=== PATIENT | male | born 1950 | race Hispanic/Latino ===

== ENCOUNTER 2023-01-01 14:12 | Inpatient (IN) | payer OTHER ==
[2023-01-01] MEDS ORDERED: Furosemide 40 MG/4 ML VIAL ONE ×2 (14:32→19:43)
[2023-01-01 14:37] LABS: #Basophils 0.1 10x3/uL (0.0-0.2); #Eosinphils 0.1 10x3/uL (0.0-0.5); #Monocytes 0.7 10x3/uL (0.0-1.1); #Neutrophils 6.5 10x3/uL (1.5-8.4); %Basophils 0.8 % (0.0-2.0); %Eosinophils 1.2 % (0.0-6.0); %Lymphocytes 12.8 % (18.0-47.0); %Monocytes 8.2 % (0.0-10.0); %Neutrophils 76.2 % (40.0-75.0); Hemoglobin 9.8 g/dL (13.5-17.5); Mean Corpuscular HGB CONC 31.7 g/dL (32.0-36.0); Mean Corpuscular Hemoglobin 26.1 pg (27.0-33.0); Mean Corpuscular Volume 82.2 fl (81.2-95.1); Platelet Count 175 10x3/uL (150-450); RBC Distribution Width 16.7 % (11.5-14.5); Red Blood Cell (RBC) Count 3.76 10x6/uL (4.32-5.72); White Blood Cell (WBC) Count 8.5 10x3/uL (3.5-10.5)
[2023-01-01 14:52] LABS: ALT (SGPT) 59 U/L (8-55); AST (SGOT) 71 U/L (5-34); Albumin 3.7 g/dL (3.4-4.8); Alkaline Phosphatase 268 U/L (40-110); Anion Gap 15 mmol/L (10-20); BUN (Urea Nitrogen) 41 mg/dL (8.4-25.7); Bilirubin, Total 0.7 mg/dL (0.2-1.2); Calc. Creatinine Clearance 0 mL/min (70-130); Calcium 8.1 mg/dL (7.8-10.44); Carbon Dioxide 17 mmol/L (23-31); Chloride 107 mmol/L (98-107); Estimated GFR 34; Glucose 200 mg/dL (80-115); Lipase 36 U/L (8-78); Protein, Total 6.7 g/dL (5.8-8.1); Sodium 134 mmol/L (136-145)
[2023-01-01 16:50] LABS: SARS-CoV-2 NAA Rapid Test Not Detected (NotDetected)
[2023-01-01] MEDS ORDERED: Acetaminophen 325 MG TAB PO PRN (17:26)
[2023-01-01] MEDS ORDERED: Senokot S 8.6-50 MG TAB PO PRN (17:26)
[2023-01-01] MEDS ORDERED: Bisacodyl 5 MG TAB PO PRN (17:26)
[2023-01-01] MEDS ORDERED: Ondansetron PF 4 MG/2 ML Vial IVP PRN (17:26)
[2023-01-01] MEDS ORDERED: HYDROcodone/Acetaminophen 5/325 mg Tablet PO PRN (17:26)
[2023-01-01] MEDS ORDERED: Calcium Carbonate 500 MG ChewTAB PO PRN (17:26)
[2023-01-01] MEDS ORDERED: Glucagon 1 MG/ML KIT IM PRN (17:53)
[2023-01-01] MEDS ORDERED: Dextrose 5% in Water 1,000 ML IV PRN (17:53)
[2023-01-01] MEDS ORDERED: Dextrose 50% Abboject 50 ML SYRINGE SLOW IVP PRN (17:53)
[2023-01-01] MEDS ORDERED: Furosemide 40 MG/4 ML VIAL SLOW IVP SCH (18:00)
[2023-01-01 18:11] LABS: Troponin I 0.021 ng/mL (< 0.028)
[2023-01-01 20:46] LABS: Troponin I 0.021 ng/mL (< 0.028)
[2023-01-01] MEDS ORDERED: Famotidine 20 MG TAB PO SCH (21:00)
[2023-01-01] MEDS ORDERED: traMADol HCl 50 MG TAB PO SCH (23:30)
[2023-01-02 05:20] VITALS: BMI 28.9
[2023-01-02 05:26] LABS: #Basophils 0.1 10x3/uL (0.0-0.2); #Eosinphils 0.1 10x3/uL (0.0-0.5); #Monocytes 0.8 10x3/uL (0.0-1.1); #Neutrophils 6.3 10x3/uL (1.5-8.4); %Basophils 0.7 % (0.0-2.0); %Eosinophils 1.4 % (0.0-6.0); %Lymphocytes 15.2 % (18.0-47.0); %Monocytes 9.2 % (0.0-10.0); %Neutrophils 73.1 % (40.0-75.0); Anion Gap 17 mmol/L (10-20); BUN (Urea Nitrogen) 45 mg/dL (8.4-25.7); Calc. Creatinine Clearance 33 mL/min (70-130); Calcium 8.9 mg/dL (7.8-10.44); Carbon Dioxide 19 mmol/L (23-31); Cardiac Risk 4.2 (Less than 4.5); Chloride 105 mmol/L (98-107); Cholesterol 109 mg/dl (< 200 Desired); Estimated GFR 31; Glucose 102 mg/dL (80-115); HDL Cholesterol 26 mg/dL (>60 Neg Risk); LDL Cholesterol, Calculated 72 mg/dL; Mean Corpuscular HGB CONC 31.1 g/dL (32.0-36.0); Mean Corpuscular Hemoglobin 25.4 pg (27.0-33.0); Mean Corpuscular Volume 81.9 fl (81.2-95.1); Mean Platelet Volume 10.6 fl (7.4-10.4); Platelet Count 177 10x3/uL (150-450); RBC Distribution Width 16.4 % (11.5-14.5); Red Blood Cell (RBC) Count 3.93 10x6/uL (4.32-5.72); Sodium 136 mmol/L (136-145); Triglycerides 57 mg/dL (Less than 150); White Blood Cell (WBC) Count 8.6 10x3/uL (3.5-10.5)
[2023-01-02] MEDS: Furosemide 40 MG/4 ML VIAL SLOW IVP SCH ×2 (05:56→14:54)
[2023-01-02] MEDS: Levothyroxine Sodium 50 MCG TAB PO SCH (05:56)
[2023-01-02] MEDS: Albumin 25% 25 GM/100 ML BOT IVPB SCH ×3 (09:57→21:28)
[2023-01-02] MEDS: Aspirin Chewable 81 MG TAB PO SCH (09:58)
[2023-01-02 12:50] LABS: Hemoglobin A1c 6.5 % (4.0-6.0)
[2023-01-02] MEDS: Carvedilol 3.125 MG TAB PO SCH (17:06)
[2023-01-03] MEDS: Albumin 25% 25 GM/100 ML BOT IVPB SCH (02:54)
[2023-01-03] MEDS: Levothyroxine Sodium 50 MCG TAB PO SCH (05:35)
[2023-01-03] MEDS: Furosemide 40 MG/4 ML VIAL SLOW IVP SCH ×2 (05:35→14:36)
[2023-01-03 05:58] LABS: Anion Gap 19 mmol/L (10-20); BUN (Urea Nitrogen) 53 mg/dL (8.4-25.7); Calc. Creatinine Clearance 29 mL/min (70-130); Calcium 9.3 mg/dL (7.8-10.44); Carbon Dioxide 20 mmol/L (23-31); Chloride 101 mmol/L (98-107); Estimated GFR 25; Glucose 141 mg/dL (80-115); Potassium 4.9 mmol/L (3.5-5.1); Sodium 135 mmol/L (136-145)
[2023-01-03 06:18] LABS: #Basophils 0.1 10x3/uL (0.0-0.2); #Eosinphils 0.2 10x3/uL (0.0-0.5); #Monocytes 0.7 10x3/uL (0.0-1.1); %Basophils 0.6 % (0.0-2.0); %Eosinophils 1.9 % (0.0-6.0); %Lymphocytes 13.8 % (18.0-47.0); %Monocytes 8.1 % (0.0-10.0); %Neutrophils 75.1 % (40.0-75.0); Hemoglobin 9.6 g/dL (13.5-17.5); Mean Corpuscular HGB CONC 30.4 g/dL (32.0-36.0); Mean Corpuscular Hemoglobin 25.2 pg (27.0-33.0); Mean Corpuscular Volume 82.9 fl (81.2-95.1); Platelet Count 151 10x3/uL (150-450); RBC Distribution Width 16.6 % (11.5-14.5); Red Blood Cell (RBC) Count 3.81 10x6/uL (4.32-5.72)
[2023-01-03] MEDS: Aspirin Chewable 81 MG TAB PO SCH (09:11)
[2023-01-03] MEDS: Carvedilol 3.125 MG TAB PO SCH (10:01)
[2023-01-03] MEDS ORDERED: Loperamide HCl 2 MG CAP PO SCH (12:00)
[2023-01-03] MEDS: Carvedilol 6.25 MG TAB PO SCH (17:01)
[2023-01-03] MEDS: HumaLOG 300 UNITS/3 ML VIAL SC PRN (17:37)
[2023-01-04 05:33] LABS: Anion Gap 18 mmol/L (10-20); BUN (Urea Nitrogen) 56 mg/dL (8.4-25.7); Calc. Creatinine Clearance 31 mL/min (70-130); Carbon Dioxide 21 mmol/L (23-31); Chloride 101 mmol/L (98-107); Estimated GFR 27; Glucose 104 mg/dL (80-115); Potassium 4.6 mmol/L (3.5-5.1); Sodium 135 mmol/L (136-145)
[2023-01-04 05:36] LABS: #Basophils 0.1 10x3/uL (0.0-0.2); #Eosinphils 0.3 10x3/uL (0.0-0.5); #Monocytes 0.9 10x3/uL (0.0-1.1); #Neutrophils 6.9 10x3/uL (1.5-8.4); %Basophils 0.6 % (0.0-2.0); %Eosinophils 2.8 % (0.0-6.0); %Lymphocytes 15.4 % (18.0-47.0); %Monocytes 9.4 % (0.0-10.0); %Neutrophils 71.4 % (40.0-75.0); Mean Corpuscular HGB CONC 31.7 g/dL (32.0-36.0); Mean Corpuscular Hemoglobin 25.6 pg (27.0-33.0); Mean Corpuscular Volume 80.8 fl (81.2-95.1); Mean Platelet Volume 10.6 fl (7.4-10.4); Platelet Count 174 10x3/uL (150-450); RBC Distribution Width 16.3 % (11.5-14.5); White Blood Cell (WBC) Count 9.6 10x3/uL (3.5-10.5)
[2023-01-04] MEDS: Levothyroxine Sodium 50 MCG TAB PO SCH (06:20)
[2023-01-04] MEDS: Furosemide 40 MG/4 ML VIAL SLOW IVP SCH ×2 (06:20→13:08)
[2023-01-04] MEDS: Aspirin Chewable 81 MG TAB PO SCH (08:25)
[2023-01-04] MEDS: Carvedilol 6.25 MG TAB PO SCH ×2 (08:25→17:27)
[2023-01-04] MEDS: Albumin 25% 25 GM/100 ML BOT IVPB SCH ×3 (13:09→22:21)
[2023-01-04] MEDS: HumaLOG 300 UNITS/3 ML VIAL SC PRN (13:13)
[2023-01-04] MEDS ORDERED: Furosemide 20 MG/2 ML VIAL SLOW IVP SCH (18:00)
[2023-01-05 04:18] LABS: Anion Gap 18 mmol/L (10-20); BUN (Urea Nitrogen) 61 mg/dL (8.4-25.7); Calc. Creatinine Clearance 29 mL/min (70-130); Calcium 9.4 mg/dL (7.8-10.44); Carbon Dioxide 21 mmol/L (23-31); Chloride 99 mmol/L (98-107); Estimated GFR 25; Glucose 124 mg/dL (80-115); Magnesium 1.9 mg/dL (1.6-2.6); Potassium 4.4 mmol/L (3.5-5.1); Sodium 134 mmol/L (136-145)
[2023-01-05] MEDS: Levothyroxine Sodium 50 MCG TAB PO SCH (06:03)
[2023-01-05] MEDS: Albumin 25% 25 GM/100 ML BOT IVPB SCH (06:03)
[2023-01-05] MEDS: Furosemide 40 MG/4 ML VIAL SLOW IVP SCH (06:03)
[2023-01-05 08:18] VITALS: BP 149/65; TEMP 97.8
[2023-01-05] MEDS: Aspirin Chewable 81 MG TAB PO SCH (08:49)
[2023-01-05] MEDS: Carvedilol 6.25 MG TAB PO SCH (08:50)
[2023-01-05] MEDS ORDERED: Magnesium 2 GM/50 ML(in water) 2 GM in Premix Bag 1 BAG IVPB SCH (09:00)
== END 2023-01-05 11:47 | disposition home or self-care (01) | DRG 291 ==
LOC: CSHERS 14:12 → EEVIPCON 14:12 → CSHERHOLD 18:09 → CSHTELE 20:35
PROVIDERS: ADMIT Family Medicine; ATTEND Internal Medicine
DX: I13.0 Hypertensive heart and chronic kidney disease with heart failure and stage 1 through stage 4 chronic kidney disease, or unspecified chronic kidney disease (principal); I50.23 Acute on chronic systolic (congestive) heart failure; E03.9 Hypothyroidism, unspecified; K21.9 Gastro-esophageal reflux disease without esophagitis; E11.22 Type 2 diabetes mellitus with diabetic chronic kidney disease; N18.9 Chronic kidney disease, unspecified; E78.5 Hyperlipidemia, unspecified; Z20.822 Contact with and (suspected) exposure to COVID-19; R19.7 Diarrhea, unspecified; Z95.2 Presence of prosthetic heart valve; Z95.0 Presence of cardiac pacemaker; Z98.890 Other specified postprocedural states
CPT/HCPCS: 36415; 36416; 71045; 80048; 80053; 80061; 83036; 83690; 83735; 83880; 84443; 84484; 85025; 93005; 93306; 96374; J1650; J1940; J3475; P9047; U0002